=== PATIENT | male | born 2000 | race Caucasian/White ===

== ENCOUNTER 2020-05-15 13:01 | Emergency (ER) | payer OTHER ==
[~2020-05-15] VITALS: Ht 185.4 cm; Wt 127.0 kg
[2020-05-15 13:10] VITALS: Ht 185.4 cm; Wt 127.0 kg
[2020-05-15 17:17] VITALS: BP 143/86
== END 2020-05-15 17:17 | disposition home or self-care (01) ==
LOC: ED 13:01
DX: M79.602 Pain in left arm (principal)